=== PATIENT | male | born 1990 | race American Indian/Alaskan Native ===

== ENCOUNTER 2018-12-02 12:22 | Emergency (ER) | payer SELFPAY ==
[2018-12-02 12:48] VITALS: BP 127/76
--- NOTE | 2018-12-02 12:52 | Event Note ---
ED Screening Note Date of service: 12/02/18 Time: 12:50 ED Screening Note: 28 y/o male comes for right hand pain after hitting a window last night. This initial assessment/diagnostic orders/clinical plan/treatment(s) is/are subject to change based on patients health status, clinical progression and re- assessment by fellow clinical providers in the ED. Further treatment and workup at subsequent clinical providers discretion. Patient/guardian urged not to elope from the ED as their condition may be serious if not clinically assessed and managed. Initial orders include:
--- NOTE | 2018-12-02 13:26 | Emergency Department Report ---
Upper Extremity - [facility] Chief Complaint: Laceration/Recheck/Suture Stated Complaint: RT HAND INJURY Time Seen by Provider: 12/02/18 13:21 Upper Extremity: Right Wrist Occurred When: 1 Day Mechanism: Hit with Object Severity: moderate Symptoms: Yes Pain with Movement, Yes Swelling, Yes Laceration or Abrasion, No Deformity, No Limited Range of Movement, No Numbness, No Weakness, No Bruising/Ecchymosis ED Review of Systems ROS: Stated complaint: RT HAND INJURY Other details as noted in HPI ED Past Medical Hx - Past Medical History Hx Psychiatric Treatment: Yes (bipolar) - Surgical History Additional Surgical History: right testicular torsion - Social History Smoking Status: Current Every Day Smoker Substance Use Type: Alcohol - Medications Home Medications: Home Medications Medication Instructions Recorded Confirmed Last Taken Type ARIPiprazole [Abilify TAB] 5 mg PO DAILY 07/08/13 07/08/13 03/11/13 History FLUoxetine [PROzac] 20 mg PO DAILY 07/08/13 07/08/13 07/07/13 History HYDROcodone/APAP 5-325 [[place] 1 each PO Q6HR PRN #20 tablet 07/31/13 Unknown Rx 5/325 mg] Ibuprofen [Motrin 800 MG tab] 800 mg PO TID #20 tablet 12/02/18 Unknown Rx Sulfamethoxazole/Trimethoprim 1 each PO BID #14 tablet 12/02/18 Unknown Rx [Bactrim DS TAB] cephALEXin [Keflex] 500 mg PO Q6H #15 capsule 12/02/18 Unknown Rx Upper Extremity Exam - Exam General: Vital signs noted. No distress. Alert and acting appropriately. ED Course Vital Signs 12/02/18 12:46 Temperature 98.3 F Pulse Rate 80 Respiratory 18 Rate Blood Pressure 127/76 O2 Sat by Pulse 98 Oximetry ED Medical Decision Making - Radiology Data Radiology results: report reviewed, image reviewed Fluoro Time In Minutes: XR hand 3+V RT INDICATION: Right hand pain after trauma. COMPARISON: None available. FINDINGS: There is some small radiopaque foreign bodies in the subcutaneous soft tissues along the dorsal aspect of the fifth MCP joint. There is adjacent soft tissue swelling. There is no fracture, subluxation, or other acute osseous abnormality though. Signer Name: Rafi Santos MD Signed: 12/02/2018 1:25 PM Workstation Name: [id number] Transcribed By: PERRY Dictated By: Rafi Santos MD Electronically Authenticated By: Rafi Santos MD Signed Date/Time: 12/02/18 5325 - Medical Decision Making 38-year-old female male presents to ED with right hand sprain swelling. X-ray shows no acute fracture or dislocation. Abrasions were flushed with 200 mL of normal saline. And cleaned Discussed the patient to follow-up with orthopedic doctor as well as primary care physician. Patient was sent home with antibiotics and pain medication. Vital signs are normal patient is in no acute distress. Critical care attestation.: If time is entered above; I have spent that time in minutes in the direct care of this critically ill patient, excluding procedure time. ED Disposition Clinical Impression: Hand pain, right, Localized swelling on right hand Disposition: DC-01 TO HOME OR SELFCARE Is pt being admited?: No Does the pt Need Aspirin: No Condition: Stable Instructions: Arthralgia (ED) Additional Instructions: Make sure to follow up with the primary care physician as discussed. Take all your medications as you've been prescribed. Apply ice to your hand 3 times a day. If you have any worsening symptoms or develop new symptoms please return to ED immediately. Prescriptions: Sulfamethoxazole/Trimethoprim [Bactrim DS TAB] 1 each PO BID #14 tablet cephALEXin [Keflex] 500 mg PO Q6H #15 capsule Ibuprofen [Motrin 800 MG tab] 800 mg PO TID #20 tablet [facility]: [facility] ASHLYN [Primary Care Provider] - 3-5 Days CATE ALVAREZ MD [Staff Physician] - 3-5 Days Forms: Work/School Release Form(ED) Time of Disposition: 14:51
[2018-12-02] MEDS ORDERED: IBUPROFEN PO ONE (13:29)
--- NOTE | 2018-12-02 13:30 | XRay Report ---
XR hand 3+V RT INDICATION: Right hand pain after trauma. COMPARISON: None available. FINDINGS: There is some small radiopaque foreign bodies in the subcutaneous soft tissues along the dorsal aspec t of the fifth MCP joint. There is adjacent soft tissue swelling. There is no fracture, subluxation, or other acute osseous abnormality though. Signer Name: Rafi Santos MD Signed: 12/02/2018 1:25 PM Workstation Name: [id number]
[2018-12-02] MEDS ORDERED: TRIPLE ANTIBIOTIC TP ONE (14:12)
== END 2018-12-02 15:39 | disposition home or self-care (01) ==
LOC: ED 12:22
DX: M79.641 Pain in right hand (principal); R22.31 Localized swelling, mass and lump, right upper limb; F31.9 Bipolar disorder, unspecified; F17.200 Nicotine dependence, unspecified, uncomplicated; Z79.899 Other long term (current) drug therapy
CPT/HCPCS: 99283; A6250

== ENCOUNTER 2019-04-10 16:49 | Emergency (ER) | payer SELFPAY ==
--- NOTE | 2019-04-10 19:46 | XRay Report ---
RIGHT HAND 4 VIEWS INDICATION / CLINICAL INFORMATION: MAIN: TRAUMA, FALL RT HAND PAIN COMPARISON: 12/02/2018 FINDINGS: BONES / JOINT(S): No acute fracture or subluxation. There is an erosion noted proximal aspect of the thumb proximal phalanx SOFT TISSUES: Small radiopaque foreign body adjacent to the right fifth MCP joint is again noted and appears unchanged from the prior study. ADDITIONAL FINDINGS: None. Signer Name: Chalino Espinal MD Signed: 04/10/2019 7:41 PM Workstation Name: [id number]
--- NOTE | 2019-04-10 19:47 | XRay Report ---
RIGHT FOOT 3 VIEWS INDICATION / CLINICAL INFORMATION: MAIN: TRAUMA, FALL RT FOOT PAIN COMPARISON: None available. FINDINGS: BONES / JOINT(S): No acute fracture or subluxation. No significant arthritis. SOFT TISSUES: No significant abnormality. ADDITIONAL FINDINGS: None. Signer Name: Chalino Espinal MD Signed: 04/10/2019 7:42 PM Workstation Name: [id number]
--- NOTE | 2019-04-10 21:50 | Emergency Department Report ---
ED Fall HPI - General Chief Complaint: Fall Stated Complaint: FALL INJURY/RT FOOT/RT HAND Time Seen by Provider: 04/10/19 21:42 Source: patient Mode of arrival: Ambulatory Limitations: No Limitations - History of Present Illness Initial Comments: Mr. Garrett is a 28 yo male with hx of bipolar disorder who presents after fall from on . He has right hand bruising and right foot pain. 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 He aslo has left jaw swelling. Requires crutches to ambulate. MD Complaint: fall -: days(s) (2) Fall From: standing Fall Witnessed: yes, by family Place Fall Occurred: home Loss of Consciousness: none Prolonged Down Time?: no Symptoms Prior to Fall: none Location: other (right hand and right foot left jaw) Quality: dull Context: tripped/slipped Associated Symptoms: unable to walk - Related Data Home Medications Medication Instructions Recorded Confirmed Last Taken ARIPiprazole [Abilify TAB] 5 mg PO DAILY 07/08/13 07/08/13 03/11/13 FLUoxetine [PROzac] 20 mg PO DAILY 07/08/13 07/08/13 07/07/13 Previous Rx's Medication Instructions Recorded Last Taken Type HYDROcodone/APAP 5-325 [[place] 1 each PO Q6HR PRN #20 tablet 07/31/13 Unknown Rx 5/325 mg] Ibuprofen [Motrin 800 MG tab] 800 mg PO TID #20 tablet 12/02/18 Unknown Rx Sulfamethoxazole/Trimethoprim 1 each PO BID #14 tablet 12/02/18 Unknown Rx [Bactrim DS TAB] cephALEXin [Keflex] 500 mg PO Q6H #15 capsule 12/02/18 Unknown Rx Ibuprofen [Motrin 800 MG tab] 800 mg PO Q8HR PRN #15 tablet 04/10/19 Unknown Rx Allergies Allergy/AdvReac Type Severity Reaction Status Date / Time No Known Allergies Allergy Verified 07/31/13 13:15 ED Review of Systems ROS: Stated complaint: FALL INJURY/RT FOOT/RT HAND Other details as noted in HPI Constitutional: denies: fever, malaise Respiratory: denies: cough Cardiovascular: denies: chest pain Gastrointestinal: denies: abdominal pain Musculoskeletal: arthralgia, myalgia ED Past Medical Hx - Past Medical History Previous Medical History?: No Hx Psychiatric Treatment: Yes (bipolar) - Surgical History Past Surgical History?: Yes Additional Surgical History: right testicular torsion - Social History Smoking Status: Never Smoker Substance Use Type: Alcohol - Medications Home Medications: Home Medications Medication Instructions Recorded Confirmed Last Taken Type ARIPiprazole [Abilify TAB] 5 mg PO DAILY 07/08/13 07/08/13 03/11/13 History FLUoxetine [PROzac] 20 mg PO DAILY 07/08/13 07/08/13 07/07/13 History HYDROcodone/APAP 5-325 [[place] 1 each PO Q6HR PRN #20 tablet 07/31/13 Unknown Rx 5/325 mg] Ibuprofen [Motrin 800 MG tab] 800 mg PO TID #20 tablet 12/02/18 Unknown Rx Sulfamethoxazole/Trimethoprim 1 each PO BID #14 tablet 12/02/18 Unknown Rx [Bactrim DS TAB] cephALEXin [Keflex] 500 mg PO Q6H #15 capsule 12/02/18 Unknown Rx Ibuprofen [Motrin 800 MG tab] 800 mg PO Q8HR PRN #15 tablet 04/10/19 Unknown Rx ED Physical Exam - General Limitations: No Limitations General appearance: alert, in no apparent distress - Head Head exam: Present: normocephalic, other (left jaw swelling abrasions left face) - Eye Eye exam: Present: normal appearance. Absent: scleral icterus, conjunctival injection - ENT ENT exam: Present: mucous membranes moist - Neck Neck exam: Present: normal inspection - Respiratory Respiratory exam: Absent: respiratory distress - Extremities Exam Extremities exam: Present: other - Expanded Upper Extremity Exam Right Shoulder Exam: Present: normal inspection, full ROM Upper Arm exam: Present: normal inspection, full ROM Elbow exam: Present: normal inspection, full ROM Forearm Wrist exam: Present: normal inspection, full ROM Hand Wrist exam: Present: tenderness, swelling. Absent: laceration, ecchymosis, deformity, crepidus, erythema, amputation Vascular: Present: normal capillary refill - Expanded Lower Extremity Exam Right Knee exam: Present: normal inspection, full ROM Lower Leg exam: Present: normal inspection, full ROM Ankle exam: Present: normal inspection Foot/Toe exam: Present: normal inspection, full ROM ED Course Vital Signs 04/10/19 16:51 Temperature 97.8 F Pulse Rate 72 Respiratory 18 Rate Blood Pressure 134/85 O2 Sat by Pulse 97 Oximetry ED Medical Decision Making - Medical Decision Making Mr. Garrett presents after fall 2 days ago. Right hand swelling noted. Right hand and right foot radiographs process. Left jaw contusion. He requested light-duty at work. I provided a work excuse as requested. Critical care attestation.: If time is entered above; I have spent that time in minutes in the direct care of this critically ill patient, excluding procedure time. ED Disposition Clinical Impression: Contusion of jaw, Sprain of right hand, Right foot sprain Disposition: TO HOME OR SELFCARE Is pt being admited?: No Does the pt Need Aspirin: No Condition: Stable Prescriptions: Ibuprofen [Motrin 800 MG tab] 800 mg PO Q8HR PRN #15 tablet PRN Reason: Pain , Severe (7-10) Referrals: CATE ALVAREZ MD [Staff Physician] - 3-5 Days Forms: Work/School Release Form(ED)
[2019-04-10 22:00] VITALS: BP 129/72
== END 2019-04-10 22:00 | disposition home or self-care (01) ==
LOC: ED 16:49
DX: S93.601A Unspecified sprain of right foot, initial encounter (principal); S63.91XA Sprain of unspecified part of right wrist and hand, initial encounter; S00.83XA Contusion of other part of head, initial encounter; F31.9 Bipolar disorder, unspecified; W18.30XA Fall on same level, unspecified, initial encounter; Y93.89 Activity, other specified; Y92.89 Other specified places as the place of occurrence of the external cause; Y99.8 Other external cause status